=== PATIENT | male | born 1990 | race Two or more races ===

== ENCOUNTER 2017-12-01 20:37 | Emergency (ER) | payer BC ==
[~2017-12-01] VITALS: Ht 185.4 cm; Wt 103.2 kg
[2017-12-01 21:10] VITALS: Ht 185.4 cm; Wt 103.2 kg
[2017-12-01 22:53] VITALS: BP 119/79
== END 2017-12-01 22:53 | disposition home or self-care (01) ==
LOC: ED 20:37
DX: S61.452A Open bite of left hand, initial encounter (principal); W54.0XXA Bitten by dog, initial encounter; Y93.89 Activity, other specified; Y92.89 Other specified places as the place of occurrence of the external cause; Y99.8 Other external cause status
CPT/HCPCS: J0295